=== PATIENT | male | born 1985 | race Caucasian/White ===

== ENCOUNTER 2016-11-26 03:21 | Emergency (ER) | payer MEDICAID, OTHER ==
[2016-11-26] MEDS ORDERED: 0.9% Sodium Chloride 1,000 ML IV ONE (03:26)
[2016-11-26 04:00] LABS: BASOPHILS % (AUTO) 0.1 % (0-3); EOSINOPHILS % (AUTO) 0.1 % (0-5); MONOCYTES % (AUTO) 6.9 % (4-12); Mean Corpuscular Hemoglobin 32.5 pg (27.0-35.0); Mean Corpuscular Volume 101.8 fL (81-100); NEUTROPHILS % (AUTO) 86.3 % (40-74); Platelet Count 267 bil/L (150-400)
[2016-11-26 04:26] LABS: INR 1.5 ratio
[2016-11-26] MEDS ORDERED: METO25TA6 PO (10:26)
[2016-11-26] MEDS ORDERED: OMEP20CA11 PO (10:28)
[2016-11-29] MEDS ORDERED: HYDR-4003 PO (14:39)
== END 2016-12-01 10:23 | disposition admitted as inpatient to this hospital (09) ==
LOC: EDBD 03:21 → SED 06:30
DX: R69 Illness, unspecified (principal)

== ENCOUNTER 2016-11-26 03:30 | Inpatient (IN) | payer MEDICAID, OTHER ==
[2016-11-26] VITALS (25 sets, daily range): BP systolic 3–152; BP diastolic 50–99; PULSE 73–132; RESP 13–26; O2SAT 91–100
[~2016-11-26] VITALS: Ht 180.3 cm; Wt 100.1 kg
--- NOTE | 2016-11-26 03:45 | ED.REPORT ---
HPI-General Illness Date of Service Nov 26, 2016 ED Provider: Dwain Rodriguez MD This is a 31 year old male transferred to the ED from [facility] with splenic laceration. Pt reports abdominal pain. Denies fever, chills, nausea or vomiting. Reports consumption of twenty alcoholic beverages today and lifting of a heavy object. He presented there pale hypotensive initially felt to be septic, in view of the negative history of trauma. CT revealed a splenic laceration with significant hemoperitoneum. Initial hemoglobin was normal but his decline rapidly. He has required ongoing fluids to sustain his blood pressure. Not transfused prior to transfer Nursing Notes Stated Complaint: SPLENIC LACERATION Chief Complaint: Male Abdominal Pain Nursing Notes Reviewed: Yes Allergies: Coded Allergies: No Known Allergies (Unverified , 11/26/16) General Time Seen by MD: 03:44 Chief Complaint Other Hx Obtained From: Patient Arrived By: Ambulance Sudden in Onset?: Yes Onset Occurred: Just prior to arrival Symptom Duration: Since onset Severity: Current: Moderate Pertinent Negative: Pt denies other symptoms Recent Healthcare: Recent doctor visit Similar Sx Previous: No Past Medical History Past Medical History Denies Past Surgical History Denies Social History Alcohol Use: >5 per day Ambulatory Status Independent Review of Systems Full Review of Systems Constitutional: Denies: Chills, Fever GI: Reports: Abdominal pain, Denies: Nausea, Vomiting Neurologic: Denies: Headache Complete sys rev & neg: except as marked. Physical Exam Vital Signs Vital Signs Date Time Temp Pulse Resp B/P Pulse Ox O2 Delivery O2 Flow Rate FiO2 11/26/16 04:10 124 24 92/54 100 Nasal Cannula 2 11/26/16 03:50 16 126/82 100 Room Air 11/26/16 03:44 36.7 100 19 126/82 100 Room Air - Initial VS: Reviewed Head / Eyes: Atraumatic, Normocephalic, PERRL ENT: Mucous membranes moist, Conjunctiva normal, No scleral icterus Neck: Supple, Non-tender, Full range of motion Respiratory: Breath sounds normal, Clear to auscultation, No respiratory distress Extremities: Vascular intact, Neuro intact, No swelling, No tenderness Neurologic: Alert, Oriented, Nonfocal Psychiatric: Mood/affect normal, Behavior normal, Normal thought content General/Constitutional: Awake, Alert Appearance / Presentation: Positive: Pale Cardiovascular: Regular rhythm, No murmurs, No rubs Heart Rate / Rhythm: Positive: Tachycardia Abdomen: BS normoactive Tenderness/Guarding/Rebound: Positive: Tender epigastric Skin: No rash Diaphoretic Interpretation & Diagnostics Lab Results Interpretation Result Diagram: 11/26/16 0603 ECG Interpretation ECG Interpretation: Sinus tachycardia at a rate of 107 Time: 04:03 Interpreted by: ED physician Re-Eval/Medical Decision Med Decision/Clinical Course 31-year-old alcoholic presents with spontaneous splenic rupture without significant trauma. He is hypotensive and requiring transfusion. He is transported to the operating room promptly. He is coagulopathic and these results were communicated to the operating room. Consultation : Referral / Consult Name: Michael Retana MD Consulted With: Surgeon Call Returned at: 03:19 Vet Assistant: Will see patient Counseled Regarding: Diagnosis, Lab results, Need for follow-up, Need for admission Discharge & Departure Primary Impression: Splenic laceration Encounter type: initial encounter Qualified Code: S36.039A - Unspecified laceration of spleen, initial encounter Additional Impressions: Hypovolemic shock Alcoholism Coagulopathy Severe anemia Hypocalcemia Disposition: ADMITTED TO HOSPITAL Discharge Condition All VS Reviewed: Yes Condition: Stable Crit Care Except Billable Proc Time Spent: 30-74 minutes Services Performed: Patient management by me, Time spent at bedside, Reviewing test results, Reviewing imaging, Discussing patient care, Documentation in record Scribe Attestation Portions of this note were transcribed by Jakub Iverson. I, Dr. Rodriguez personally performed the history, physical exam and medical decision-making; I reviewed and confirmed the accuracy of the information in the transcribed note. Signed by: chuyita Greenwood. 11/25/2016, 03:30. Dwain Rodriguez MD Nov 26, 2016 03:45 JAKUB IVERSON Nov 26, 2016 03:55
[2016-11-26] MEDS ORDERED: Lactated Ringer's 1,000 ML IV ONE (04:20)
--- NOTE | 2016-11-26 04:22 | HP ---
[address] [address] HISTORY AND PHYSICAL PATIENT: MARZENA DE LOS SANTOS : 1985 MR#: [id number] ADMIT: 11/26/2016 JOB ID: [id number] CHIEF COMPLAINT: Hemoperitoneum, ruptured spleen. HISTORY OF PRESENT ILLNESS: The patient is a 31-year-old male who I was contacted by the [facility] just now due to findings of hemoperitoneum and ruptured spleen on the CT scan. The patient was subsequently transferred from [facility] Emergency Department to our emergency department. The story is that he was just at home. There is no history of trauma. He just started to feel dizzy. Patient only takes blood pressure medication. The patient is a fairly heavy drinker. The patient was found to be hypotensive in the emergency department at [facility]. The emergency department doc had initially suspected sepsis, but subsequent imaging studies demonstrated the hemoperitoneum and ruptured spleen with active extravasation on CT. PAST MEDICAL HISTORY: Hypertension. MEDICATIONS: Metoprolol. ALLERGIES: None. SOCIAL HISTORY: Patient is with a son and a daughter. He lives in [place]. He works for an [employer] company. Patient admits to fairly heavy drinking of alcohol, about 12 beers a day. FAMILY HISTORY: Noncontributory to the current clinical situation. REVIEW OF SYSTEMS: Positive for just dizziness. No recent trauma or falls. PHYSICAL EXAMINATION: The patient is currently stable in the emergency department. His blood pressure is 126/82, pulse of 100, respirations 19, temperature 36.7. Head is normocephalic, atraumatic. There is no scleral icterus. Neck is supple. Heart is regular. Lungs are clear. Abdomen is obese, but soft. There is some tenderness in the epigastric region. There are no peritoneal signs. Extremities show no clubbing and no cyanosis. Neurologically, patient is awake and alert, and answers appropriately. We are currently getting laboratory studies, including PT, PTT, and type and cross. ASSESSMENT: This is a 31-year-old male with a spontaneous rupture of the spleen. There is no history of trauma or falls. We will take the patient to the operating room tonight for splenectomy. The risks and postoperative expectations were discussed with the patient, patient understands and wishes to proceed. The patient will need to be in the intensive care unit postop. He will need vaccines in the postoperative period as an outpatient. APRYL
[2016-11-26] MEDS ORDERED: 0.9% Sodium Chloride 1,000 ML IV ONE ×3 (04:30→16:40)
[2016-11-26] MEDS ORDERED: CeFAZolin Inj 2 GM in IV Premix 1 EACH IV ONE ×2 (04:55→13:00)
[2016-11-26] MEDS ORDERED: DEXTROSE 5% IV ONE (05:00)
[2016-11-26] MEDS ORDERED: PHYTONADIONE IV ONE (05:00)
[2016-11-26] MEDS ORDERED: Calcium Chloride 10% (Gm) 1 Gm/10 mL Inj IV ONE (05:00)
[2016-11-26] MEDS ORDERED: Heparin 5,000 Unit/mL Inj IRRIGATION ONE (05:48)
[2016-11-26 06:06] LABS: BASOPHILS % (AUTO) 0.2 % (0-3); EOSINOPHILS % (AUTO) 0 % (0-5); MONOCYTES % (AUTO) 10.1 % (4-12); Mean Corpuscular Hemoglobin 30.2 pg (27.0-35.0); Mean Corpuscular Volume 92.9 fL (81-100); NEUTROPHILS % (AUTO) 85.4 % (40-74); Platelet Count 202 bil/L (150-400)
--- NOTE | 2016-11-26 06:09 | PCM.HPANE ---
Patient Data Surgeon Admitting Provider:Michael Retana MD Attending Provider:Michael Retana MD Primary Care Physician:Yessy Other Provider:Kelsie Zimmer Anesthesia Reason for Visit Splenic Laceration Ht/WT & BMI Height (Feet): 5 Height (Inches): 11 Weight (Kilograms): 109.09 Body Mass Index Allergies Coded Allergies: No Known Allergies (Unverified , 11/26/16) Diabetes History Hx Diabetes?: No History Cardiovascular History: Positive for:: Hypertension Denies:: Congestive Heart Failure Respiratory History: Denies:: Tuberculosis Hx Surgeries?: No Hx Diabetes: No Hx Alcohol Use: YesAlcoholic Drinks Per Day: 20 beersHx Substance Use: No Stop/Bang Risk Assessment Category Category 1A: Patient has history of documented sleep apnea, and HAS NOT received any narcotic, sedative or anesthesia administration during this stay. Category 1B: Patient has history of documented sleep apnea, and HAS received any narcotic , sedative or anesthesia administration during this stay Category 2: Patient has SUSPECTED Obstructive Sleep Apnea, and HAS received any narcotic , sedative or anesthesia administration during this stay. Category 3: Patient has SUSPECTED Obstructive Sleep Apnea and HAS NOT received narcotic, sedative or anesthesia administration during this stay. Category 4: Outpatient in Procedural Areas with known sleep apnea or who screen positive for High Risk via the STOP/BANG questionnaire. Exam Exam Vital Signs Vital Signs Date Time Temp Pulse Resp B/P Pulse Ox O2 Delivery O2 Flow Rate FiO2 11/26/16 04:59 111 22 90/54 100 Nasal Cannula 11/26/16 04:25 110 22 111/99 99 Nasal Cannula 2 11/26/16 04:19 115 26 103/88 100 Nasal Cannula 2 11/26/16 04:15 108 22 79/50 100 Nasal Cannula 2 11/26/16 04:10 124 24 92/54 100 Nasal Cannula 2 11/26/16 03:50 16 126/82 100 Room Air 11/26/16 03:44 36.7 100 19 126/82 100 Room Air General Appearance: Alert, Oriented X3, Severe Distress HEENT/AIRWAY: MP 2, Neck Movement (Nunez, FROM), Mouth Opening (WNL), Other ( diaphoretic, conversant) Meds/Labs/Diagnostics Admission Meds Current Medications Sodium Chloride/ Electrolytes 1,000 ml @ 50 mls/hr Q20H ONCE IV Last administered on 11/26/16 05:20; Start 11/26/16 at 04:26; Stop 11/27/16 at 00:25 Sodium Chloride 1,000 ml @ 0 mls/hr Q0M ONCE IV Last administered on 04:10; Start 11/26/16 at 04:30; Stop 11/26/16 at 04:31; Status DC Cefazolin Sodium/ Dextrose 2 gm/ Premix 50 ml @ 100 mls/hr ONCE ONCE IV Last administered on 11/26/16 05:04; Start 11/26/16 at 04:55; Stop 11/26/16 at 05:24 ; Status DC Phytonadione/ Dextrose/Water (Vitamin K (Adult)/D5W) 51 ml @ 102 mls/hr ONCE ONCE IV Last administered on 11/26/16 05:52; Start 11/26/16 at 05:00; Stop at 05:29; Status DC Heparin Sodium (Porcine) (Heparin Inj) 30,000 unit STK-MED ONCE IRRIGATION Last administered on 11/26/16 05:48; Start 11/26/16 at 05:48; Stop 11/26/16 at 05:56; Status DC Labs Test 11/26/16 06:03 White Blood Count 13.0th/mm3 (3.8-10.1) Red Blood Count 2.68mil/mm3 (4.40-5.80) Hemoglobin 8.1g/dL (13.8-17.2) Hematocrit 24.9% (41.0-50.0) Mean Corpuscular Volume 92.9fL (81-100) Mean Corpuscular Hemoglobin 30.2pg (27.0-35.0) Mean Corpuscular Hemoglobin Concent 32.5% (32.0-37.0) Red Cell Distribution Width 17.2% (12.3-15.4) Platelet Count 202bil/L (150-400) Neutrophils (%) (Auto) 85.4% (40-74) Lymphocytes (%) (Auto) 3.5% (14-46) Monocytes (%) (Auto) 10.1% (4-12) Eosinophils (%) (Auto) 0% (0-5) Basophils (%) (Auto) 0.2% (0-3) Plan Impression Patient chart reviewed, patient interviewed and anesthestic plan with risks, benefits, and alternatives discussed, and informed consent obtained. ASA Physical Status: ASA4 Plus Emergency Anesthetic Support Modalities: [place] Scope, Arterial Line, Central Line Anesthetic Plan: GA Bene/Risks/Altern/Consents: Yes HP Complete Prior to Induction: Yes Other verbal H&P from Mazin to me. This document was not started before in the OR. Mendoza Booth MD Nov 26, 2016 06:09
[2016-11-26] MEDS ORDERED: Lactated Ringer's 1,000 ML IV SCH (06:14)
[2016-11-26] MEDS ORDERED: Lactated Ringer's 500 ML IV PRN (06:14)
[2016-11-26] MEDS ORDERED: HYDROmorphone 1 mg/mL Inj IVPUSH PRN ×2 (06:15→07:20)
[2016-11-26] MEDS ORDERED: Atropine 0.4 mg/mL Inj IVPUSH PRN (06:15)
[2016-11-26] MEDS ORDERED: Labetalol 5 mg/mL 4 mL Inj IV PRN (06:15)
[2016-11-26] MEDS ORDERED: Ondansetron 2 mg/mL 2 mL Inj IVPUSH PRN ×2 (06:15→07:20)
[2016-11-26] MEDS ORDERED: Dexamethasone 4 mg/mL Inj IVPUSH PRN (06:15)
[2016-11-26] MEDS ORDERED: Phenylephrine 10,000 mCg/mL Inj IVPUSH PRN (06:15)
[2016-11-26] MEDS ORDERED: EPHEDrine Sulfate 50 mg/mL Inj IM PRN (06:15)
[2016-11-26] MEDS ORDERED: hydrALAZINE 20 mg/mL Inj IVPUSH PRN (06:15)
[2016-11-26] MEDS ORDERED: hydrOXYzine Inj 25 MG/1 mL SDV IM PRN (06:15)
[2016-11-26] MEDS ORDERED: fentaNYL-PF 50 mCg/mL 2 mL Inj IVPUSH PRN (06:15)
[2016-11-26] MEDS ORDERED: EPHEDrine Sulfate 50 mg/mL Inj IVPUSH PRN (06:15)
[2016-11-26 06:47] LABS: INR 1.26 ratio
--- NOTE | 2016-11-26 07:36 | PCM.ANEP1 ---
Post Anesthesia Phase 1 PACU Phase 1 Assessment Vital Signs Vital Signs Date Time Temp Pulse Resp B/P Pulse Ox O2 Delivery O2 Flow Rate FiO2 11/26/16 04:59 111 22 90/54 100 Nasal Cannula 11/26/16 04:25 110 22 111/99 99 Nasal Cannula 2 11/26/16 04:19 115 26 103/88 100 Nasal Cannula 2 11/26/16 04:15 108 22 79/50 100 Nasal Cannula 2 11/26/16 04:10 124 24 92/54 100 Nasal Cannula 2 11/26/16 03:50 16 126/82 100 Room Air 11/26/16 03:44 36.7 100 19 126/82 100 Room Air Anesthetic Administered: GA Level of Alertness: Awake, talking ANDERSON's with Equal Strength: Yes Pain: No Nausea or Vomiting: No Oxygen Delivery: Room Air Lungs: Normal Air Movement Mendoza Booth MD Nov 26, 2016 07:36
--- NOTE | 2016-11-26 07:49 | OP ---
[address] [address] OPERATIVE REPORT PATIENT: MARZENA DE LOS SANTOS : 1985 MR#: [id number] ADMIT: 11/26/2016 JOB ID: [id number] DATE OF SURGERY: 11/26/2016 SURGEON: Michael Retana MD PROCESS PUMPER: Denisse Hammer PAGonzaloC ANESTHESIA: General. PREOPERATIVE DIAGNOSIS(ES): Ruptured spleen. POSTOPERATIVE DIAGNOSIS(ES): Ruptured spleen. PRINCIPAL PROCEDURE: 1. Exploratory laparotomy. 2. Splenectomy. 3. Right femoral triple-lumen catheter placement. INDICATION FOR PROCEDURE: The patient is a 31-year-old male who was transferred in from [facility] due to a CT scan finding of ruptured spleen with active extravasation. PRINCIPAL FINDING: Successful placement of a right femoral triple-lumen catheter, followed by laparotomy and splenectomy. The assistance from a surgical PA was critical in completion of the case. PROCEDURE COURSE: The patient was brought to the operating table and was provided with general anesthesia. The patient was given IV antibiotics and SCDs. He was given a Valdes catheter. A right femoral triple-lumen catheter was first placed percutaneously by me using sterile technique. The patient's abdomen was prepped and draped in the usual sterile fashion. We had blood products available and the patient was given 10 mg of vitamin K. A surgical time-out was performed. A midline incision was made using the scalpel. The subcutaneous tissue was entered and the peritoneum was entered without difficulty. Lots of blood emanated from the peritoneal space. The fascia was opened and packing of all quadrants was first accomplished. Once we had the packing performed, we placed the Bookwalter device to help with exposure of the left upper quadrant. Sequentially, all the packings were then removed and we were able to see the ruptured spleen. The peritoneal attachments around the spleen was detached using cautery and the Impact device. There was packing placed behind the spleen to help elevate it out of the abdominal cavity. The hilum was dissected out and the splenic vein was isolated and it was tied off using 0 silk sutures x2. Next, the splenic vein was then divided. The small splenic arteries were subsequently dissected out and divided also using the Impact device. Again, all the peritoneal attachments to the retroperitoneum, and also to the left upper quadrant were divided and then the specimen was passed off. A total of 2200 cc of blood was evacuated from the patient's abdominal cavity, and approximately 1500 cc were returned to him via Cell Saver. The patient also received 3 units of packed cells, 2 units of FFP, 1 unit of platelet, and approximately 2 L of saline. Next, irrigation of all four quadrants was carried out and suctioned off. Hemostasis was adequate. There was no active arterial bleeding from the left upper quadrant and from the operative site. An NG tube was then placed and the tip was palpated to be within the stomach. Next, a piece of Surgicel was then placed directly beneath the midline incision on top of the small bowel and omentum. Next, the fascia was then closed from both ends using 0 PDS suture, and the two sutures were then tied at the midline. The subcutaneous tissue was then irrigated and the skin was closed using absorbable sutures. Steri-Strips and sterile dressing were then placed over the wound. By the end of the procedure, needle counts and sponge counts were correct. I believe the patient will be extubated and be taken back to the intensive care unit.
[2016-11-26 08:15] LABS: Mean Corpuscular Hemoglobin 31.4 pg (27.0-35.0); Mean Corpuscular Volume 95.2 fL (81-100)
[2016-11-26 08:23] LABS: INR 1.2 ratio
[2016-11-26] MEDS ORDERED: CeFAZolin Inj 2 GM in IV Premix 1 EACH IV SCH (08:30)
[2016-11-26] MEDS ORDERED: fentaNYL-PF 50 mCg/mL 2 mL Inj ONE (08:36)
--- NOTE | 2016-11-26 09:04 | NUR ---
Pt arrived from PACU at approx 0830hrs Pt was awake and conversive on arrival, VS stable, with BP 120's sys, HR 80-90's. sats high 90's on room air. He was complaining of abdo pain 7/10 and this is now down to 2/10 after Dilaudid. Pt was complaining of discomfort and "gagging" related to the NG. Dr. Retana was notified and orders received to remove this and this was done. Pt appears much more comfortable at this time. Family are in the room, supportive and helpful. Dr. Miranda is with pt at this time and updating pt and family on plan of care.
--- NOTE | 2016-11-26 09:34 | DRSVH ---
PROCEDURE: X-RAY CHEST ONE VIEW ([id number]) INDICATIONS: pre op TECHNIQUE: One view of the chest was acquired. COMPARISON: [facility], CT, CT ABDOMEN PELVIS W CONTRAST, 11/26/2016, 2:22 AM. [facility], CR, XR CHEST 1V PORTABLE, 11/26/2016, 0:31 AM. FINDINGS: Surgical changes and devices: None. Lungs and pleura: No pleural effusions or pneumothorax. Lungs are clear. Mediastinum: Mediastinal contours appear normal. Heart size is normal. Bones and chest wall: No suspicious bony lesions. Overlying soft tissues appear unremarkable. IMPRESSION: No acute cardiopulmonary disease. Dictated by: Mick MCDOWELL Interpreted: Georgina Peterson MD on 11/26/2016 at 9:34 Transcribed by: CLAUDINE on 11/26/2016 at 9:34 Approved by: Georgina Peterson M.D. on 11/26/2016 at 13:37
--- NOTE | 2016-11-26 09:41 | PCM.ANEP2 ---
Post Anesthesia Evaluation ASA/CMS Post Anesthesia VS in Patient's Normal Range?: Yes Resp Stable; Airway Patent?: Yes CV Function & Hydration Stable: Yes Mental Status Recovered?: Yes Pain control Satisfactory?: Yes N/V Control Satisfactory?: Yes Mendoza Booth MD Nov 26, 2016 09:41
[2016-11-26] MEDS: Dextrose 5% Lactated Ringer's 1,000 ML IV SCH ×2 (10:21→22:51)
[2016-11-26] MEDS: HYDROmorphone PCA 0.2 mg/mL 30 mL Inj IV PRN ×2 (10:22→17:29)
[2016-11-26] MEDS ORDERED: METO25TA6 PO (10:26)
[2016-11-26] MEDS ORDERED: OMEP20CA11 PO (10:28)
[2016-11-26] MEDS ORDERED: MeTOProlol 1 mg/mL 5 mL Inj IVPUSH SCH (12:25)
--- NOTE | 2016-11-26 12:35 | PCM.HPMED ---
Subjective Date of Service Nov 26, 2016 Primary Provider: Admitting Physician: Michael Rteana MD Primary Care Physician: N[place]erg Attending Physician: Michael Retana MD Admit Status: From the Emergency Department, Admit to [facility] Team Chief Complaint: 31-year-old man presents with splenic rupture History of Present Illness: Patient was in his usual state of health. At 6 PM on the day of admission he felt weak and presyncopal and then experienced increasing abdomen pain. No bowel changes. No significant nausea or vomiting. He had no unusual activities during the day. 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 He had lifted a dresser at home. No motor vehicle accident or impact trauma. He was taken to the emergency department by Dr. Thomas Retana and underwent splenectomy, from which she is now postoperative with mild pain complaints. Patient is a heavy beer drinker, 18 per day. States he has had mildly abnormal liver blood tests in the past. Has never had imaging of his liver and never been told he has cirrhosis. No history of alcohol withdrawal or seizures. There is no history of hematologic or immunologic disorder. Review of Systems: Complete review of systems was performed and significant findings are noted in the history of present illness and PMH. Allergies Coded Allergies: No Known Allergies (Unverified , 11/26/16) Home Medications Metoprolol Omeprazole PMH # Hypertension # Alcohol abuse # Anxiety disorder # GERD Surgical History Pediatric ocular tear duct surgery Family History No liver disease. No immunologic disease No hematologic disease. Alcoholism and psychiatric disease. 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 Hx Alcohol Use: Yes Alcoholic Drinks Per Day: 18 beers Hx Substance Use: No (no) Living Arrangement: with Family (lives with , nonsmoker, no special diet, full ADLs.) Exam Vital Signs Vital Sign - Last Date Time Temp Pulse Resp B/P Pulse Ox O2 Delivery O2 Flow Rate FiO2 11/26/16 08:30 37.0 84 17 122/64 98 Room Air 11/26/16 07:40 10 Intake and Output 11/25/16 11/25/16 11/26/16 Cumulative From/Thru 15:00 23:00 07:00 11/26/16 03:44 - 11/26/16 05:54 Intake Total 5601 ml 5601 ml Output Total 2550 ml 2550 ml Balance 3051 ml 3051 ml Intake IV Total 2551 ml 2551 ml Autotransfusion 2750 ml 2750 ml Platelets 300 ml 300 ml Output Urine Total 450 ml 450 ml Estimated Blood Loss 2100 ml 2100 ml Exam General: Slightly obese healthy-appearing man in no acute distress HEENT: sclerae anicteric, oral mucosa moist Neck: no JVD, no thyromegaly Chest: clear to auscultation Cardiac: S1S2, no murmur Abdomen: Midline incision bandaged, BS reduced, mildly tender, unable to assess for hepatomegaly Extremities: No pitting edema, no rash or petechiae Neuro: A&O, cranial nerves symmetric, motor strength 5/5, coordination normal, no tremor or asterixis, reflexes diffusely diminished Lab and Diagnostics Labs Postop hemoglobin stable 11.7, 11.5 Result Diagram: 11/26/16 0801 Assessment & Plan 31-year-old man presents with acute abdominal pain # Splenic rupture. Acute hemoperitoneum. Possibly related to weightlifting. 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 Postop course uneventful with prompt extubation. 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 Hemoperitoneum and perioperative blood loss. Currently seems stable after surgery. - Recheck CBC in a.m. - Transfuse as needed # Hypertension, chronic. On beta monica. - Continue beta monica to avoid rebound; IV metoprolol today - We start by mouth metoprolol in a.m. # Anxiety disorder, chronic. Expect this may be exacerbated by current medical conditions. - When necessary low-dose diazepam # Alcohol overuse disorder. Patient counseled by Bernardino on need to reduce alcohol intake. No history of alcohol withdrawal - Observe clinically - We will order CIWA if there are more overt signs of withdrawal. # GERD - Resume oral PPI in a.m. DVT prophylaxis. No chemoprophylaxis at present due to postoperative state. Expect early mobilization in this low risk patient. Pain Evaluation: Adequate Pain Control VTE Prophylaxis: Other Resuscitation Status: CPR: Attempt Resuscitation Time spent 60 minutes Orlando Miranda MD Nov 26, 2016 10:29
--- NOTE | 2016-11-26 13:55 | NUR ---
Pt transferred to [facility] at approx 1415hrs Pt has been stable, downgraded to floor care status, transferred to [facility]. VS have continued to be stable and pt has been able to rest on and off. He is using TOP CLEANER for pain and this is helping. UOP is a little slow, but pt does have some edema from all the fluid shifts of last night.
--- NOTE | 2016-11-26 15:00 | NUR ---
Arrival on [facility] Pt transferred from CCU to [facility] at 1425 hrs. Alert and oriented X 3. Post-op splenectomy. VSS. PIV patent and asymptomatic. Abdominal midline dressing clean, dry, and intact. [employer]OUNT [employer] SALES Dilaudid at standard setting available for pt pain control. Valdes catheter draining dark pink urine. Spouse at bedside. All personal possessions with pt. Pt states pain is 2/10. Cooperative and talkative. Administered 0.5 mg IVP Lorazepam for pt anxiety. Care continues.
--- NOTE | 2016-11-26 16:20 | NUR ---
Elevated HR Pt on continuous pulse oximeter for CHURN DRILLER Dilaudid. Noticed that pt's HR was consistently over 100 bpm. Pt asymptomatic, although he did feel his abdominal pain was increasing. Paged hospitalist and told Dr Dario Miranda of these findings. Requested additional order for metroprolol. He ordered a 1 liter NS bolus and a blood draw for hemoglobin and hematocrit. Dr Miranda later entered orders for IVP Metoprolol. Other VS stable. All of this information given to NOC shift RN. Care continues.
[2016-11-26] MEDS: MeTOProlol 1 mg/mL 5 mL Inj IVPUSH SCH (20:02)
--- NOTE | 2016-11-26 22:05 | NUR ---
Elevated HR Spoke with the MD about HR ranging between 110-135 with IV Metoprolol given. MD ordered H&H and relates tachycardia to increase in pain. No other new orders given at this time.
[2016-11-27] VITALS (12 sets, daily range): BP systolic 123–152; BP diastolic 64–83; PULSE 100–121; RESP 1–22; O2SAT 92–98
[2016-11-27] MEDS: Dextrose 5% Lactated Ringer's 1,000 ML IV SCH ×3 (00:55→16:50)
[2016-11-27] MEDS: MeTOProlol 1 mg/mL 5 mL Inj IVPUSH SCH ×2 (00:56→05:01)
[2016-11-27] MEDS: HYDROmorphone PCA 0.2 mg/mL 30 mL Inj IV PRN ×2 (01:27→08:42)
--- NOTE | 2016-11-27 04:40 | NUR ---
Patient's pain minimally controlled with FIRE FIGHTERS DISPATCHER Dilaudid. A bolus of 0.3mg given, which made the patient sleepy. MD aware of the tachycardia and relates it to an increase in pain. No new orders for new or to increase pain meds at this time.The pt's O2 decreased to 86% on RA without resp distress. Denies shortness of breath and chest pain. Placed on 2L O2 via NC and O2 saturations increased to 96%. The pt appears to be sleeping at this time.
[2016-11-27] MEDS: Pantoprazole 20 mg ER24 Tablet PO SCH (05:43)
[2016-11-27 05:50] LABS: BASOPHILS % (AUTO) 0.1 % (0-3); EOSINOPHILS % (AUTO) 0.3 % (0-5); MONOCYTES % (AUTO) 12.1 % (4-12); Mean Corpuscular Hemoglobin 31.2 pg (27.0-35.0); Mean Corpuscular Volume 95.9 fL (81-100); NEUTROPHILS % (AUTO) 80.6 % (40-74); Platelet Count 190 bil/L (150-400)
--- NOTE | 2016-11-27 10:52 | PROG NOTE ---
[address] [address] PROGRESS NOTE PATIENT: MARZENA DE LOS SANTOS : 1985 MR#: [id number] ADMIT: 11/26/2016 JOB ID: [id number] DATE: 11/27/2016 SUBJECTIVE: Postop day one laparotomy with splenectomy. The patient is doing well, says his pain is adequately controlled with his current IV pain medications. He is passing gas, but belching more. Other than that, is not hungry at all. Urine output is brisk. He has been afebrile, with a pulse around 105-109, and mildly hypertensive at 150/72. OBJECTIVE: On examination, lungs are clear. His abdomen is soft. His incision is intact without bleeding. Valdes is in place. Extremities are without edema. LABORATORY DATA: His electrolytes are normal. His creatinine is 1.37, glucose is 129, magnesium was 1.5. Hematocrit is relatively stable at 28.3, his white count is 19, his platelet count is 190. INR is 1.0. IMPRESSION AND PLAN: Doing well, no signs of active bleeding. We will check his hematocrit daily. He will start his p.o. metoprolol. We will get his Valdes out and get him up moving about.
[2016-11-27] MEDS ORDERED: MeTOProlol 1 mg/mL 5 mL Inj IVPUSH PRN (12:30)
[2016-11-27] MEDS ORDERED: Morphine PCA 1 mg/mL 30 mL Inj IV ONE (13:20)
[2016-11-27] MEDS ORDERED: Morphine PCA 1 mg/mL 30 mL Inj - Standard IV PRN (14:00)
--- NOTE | 2016-11-27 14:00 | NUR ---
PAIN/ACTIVITY Patient stated that the Dilaudid CATH LAB RADIOLOGY TECHNICIAN is not effective for his pain control. He rated his pain between 6-7/10 over his incisional area. Morphine 1 mg IV administered. Per patient the Morphine helped with his pain. He rated his pain as 5/10. CATH LAB RADIOLOGY TECHNICIAN switched to Morphine per protocol. Will reassess effectivity. Patient has been on sips and chips. Denies nausea. No emesis noted. Weaned off O2. PO2-Mid 90's on room air. Patient was able to get OOB to the chair and sat there for a couple of hours. Unable to ambulate at this time due to complaints of dizziness. [facility] d/cd. No UO at this time. Will continue to monitor. MG level is 1.5. New orders for Mg rider received. Will continue to monitor.
[2016-11-27] MEDS ORDERED: Magnesium Sulf 4 Gm/100 mL D5W Premix IV ONE (14:25)
[2016-11-27] MEDS: HYDROcodone-APAP 5-325 mg Tablet PO PRN ×2 (18:11→22:01)
--- NOTE | 2016-11-27 19:12 | NUR ---
POST-OP PROGRESS IV noted to be leaking. IV d/cd. IV therapy to restart IV. Will restart HANDBAG DESIGNER when IV site is available and will re-assess Morphine HANDBAG DESIGNER effectivity. Hydrocodone 2 tabs PO administered. Tolerating sips/chips. Denies nausea. No emesis noted. Denies SOB. Patient was able to void post IFC removal. CIWA-2. Patient is complaining of anxiety. Nicotine patch and Ativan offered. Patient refused at this time. Endorsed care to Marija Hassan RN.
--- NOTE | 2016-11-27 21:33 | PCM.PNMED ---
Subjective Date of Service Nov 27, 2016 Subjective Patient has some postoperative pain. However he is beginning to feel better. No other specific complaints. Exam Vital Signs Vital Sign - Last Date Time Temp Pulse Resp B/P Pulse Ox O2 Delivery O2 Flow Rate FiO2 11/27/16 20:38 37.1 117 22 123/67 97 Room Air 11/27/16 08:02 2.00 97 Intake and Output 11/26/16 11/26/16 11/27/16 Cumulative From/Thru 15:00 23:00 07:00 11/26/16 03:44 - 11/27/16 06:39 Intake Total 100 ml 1372 ml 1764 ml 8837 ml Output Total 800 ml 3350 ml Balance 100 ml 1372 ml 964 ml 5487 ml Intake Oral 50 ml 100 ml 150 ml IV Total 100 ml 1322 ml 1664 ml 5637 ml Autotransfusion 2750 ml Platelets 300 ml Output Urine Total 800 ml 1250 ml Estimated Blood Loss 2100 ml # Bowel Movements 0 0 Exam General: Patient is in no distress. He is only having some postoperative pain. HEENT: Head is atraumatic normocephalic. Eyes: Pupils are equally round and reactive to light and accommodation. Extraocular muscles are intact. Sclera are white anicteric. Subconjunctival mucosa is pink. Ears and nose are unremarkable. Oropharynx: There is no mucosal lesions, there is no thrush, there is no pharyngitis. Neck: Is supple, there are no nodes, or masses or tenderness. Chest: Is clear to auscultation and percussion. There are no rales, rhonchi, wheezes or rubs. Heart: Rate, rhythm is regular. There is no murmur, rub or gallop. Abdomen: Bowel sounds are present. Abdomen is exhibits expected postop incisional tenderness, no organomegaly or masses were appreciated. Extremities: Are symmetrical and well perfused. There is no edema, there is no cellulitis, no rash. Upper extremities are covered in tattoos Neurologic: There are no focal neurological deficits. Cranial nerves II through XII are intact. There are no sensory or motor deficits. Psychiatric: Patients mood is calm and shows no sign of agitation. Genital: Deferred Rectal: Deferred Lab and Diagnostics Result Diagram: 11/27/16 0440 11/27/16 0440 X-Rays, CTs and MRIs PROCEDURE: X-RAY CHEST ONE VIEW ([id number]) INDICATIONS: pre op TECHNIQUE: One view of the chest was acquired. COMPARISON: [facility], CT, CT ABDOMEN PELVIS W CONTRAST, 2016, 2:22 AM. [facility], CR, XR CHEST 1V PORTABLE, 11/26/2016, 0 :31 AM. FINDINGS: Surgical changes and devices: None. Lungs and pleura: No pleural effusions or pneumothorax. Lungs are clear. Mediastinum: Mediastinal contours appear normal. Heart size is normal. Bones and chest wall: No suspicious bony lesions. Overlying soft tissues appear unremarkable. IMPRESSION: No acute cardiopulmonary disease. Dictated by: Mick Brown RREufemia Interpreted: Georgina Peterson MD on 11/26/2016 at 9:34 Transcribed by: CLAUDINE on 11/26/2016 at 9:34 Approved by: Georgina Peterson M.D. on 11/26/2016 at 13:37 Assessment & Plan 31-year-old man presents with acute abdominal pain # Splenic rupture. Acute hemoperitoneum. Possibly related to weightlifting and /or moving extremely heavy furniture. 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 Postop course uneventful with prompt extubation. - Rule out viral illness such as hepatitis and/or HIV. Will check serologies. - Pain management with hydromorphone DISTRICT REPRESENTATIVE - Encourage ambulation out of bed - Nothing by mouth until signs of bowel activity - Okay to transfer to postsurgical floor after initial observation in CCU - Possible alcoholic cirrhosis as patient is able to drink 18 beers in a day. Will consider abdominal ultrasound to assess hepatobiliary tract after clinically stable - Patient will need vaccinations for pneumococcus, Haemophilus influenza and Neisseria meningitides # Acute anemia. Hemoperitoneum and perioperative blood loss. Currently seems stable after surgery. - Recheck CBC in a.m. - Transfuse as needed # Hypertension, chronic. On beta monica. - Continue beta monica to avoid rebound; IV metoprolol today - We start by mouth metoprolol in a.m. # Anxiety disorder, chronic. Expect this may be exacerbated by current medical conditions. - When necessary low-dose diazepam # Alcohol overuse disorder. Patient counseled by Bernardino on need to reduce alcohol intake. No history of alcohol withdrawal - Observe clinically - We will order CIWA if there are more overt signs of withdrawal. -We will check PT/INR # GERD - Resume oral PPI in a.m. # Hypomagnesemia -We will give 4 g of magnesium sulfate IV 1 today. DVT prophylaxis. No chemoprophylaxis at present due to postoperative state. Expect early mobilization in this low risk patient. Disposition: We will advance diet as tolerated and ask physical therapy to see the patient. Pain Evaluation: Adequate Pain Control GI Prophylaxis: Proton Pump Inhibitor VTE Prophylaxis: Other VTE Mechanical Devices: Intermittant Pneumatic CD Resuscitation Status: CPR: Attempt Resuscitation Dwain Pizano MD Nov 27, 2016 21:33
[2016-11-28] MEDS: HYDROcodone-APAP 5-325 mg Tablet PO PRN ×5 (02:10→18:33)
--- NOTE | 2016-11-28 03:43 | NUR ---
Pain Pain well managed with PO meds prn, pt reports pain relief equal to ACCOUNT LIAISON and less side effects. Reported able to ambulate to BR without significant increase in pain. Hourly rounding ongoing.
[2016-11-28 05:11] VITALS: BP 156/70; PULSE 96; RESP 16; O2SAT 96
[2016-11-28 05:54] LABS: BASOPHILS % (AUTO) 0.2 % (0-3); EOSINOPHILS % (AUTO) 0.8 % (0-5); MONOCYTES % (AUTO) 13.9 % (4-12); Mean Corpuscular Hemoglobin 31.5 pg (27.0-35.0); Mean Corpuscular Volume 93.8 fL (81-100); NEUTROPHILS % (AUTO) 76.6 % (40-74); Platelet Count 256 bil/L (150-400)
[2016-11-28 05:59] LABS: INR 0.95 ratio
[2016-11-28 06:11] LABS: Magnesium 2.3 mg/dL (1.6-2.6)
[2016-11-28] MEDS: Pantoprazole 20 mg ER24 Tablet PO SCH (06:13)
[2016-11-28] MEDS: Dextrose 5% Lactated Ringer's 1,000 ML IV SCH ×2 (06:33→12:55)
--- NOTE | 2016-11-28 09:02 | PCM.PNSURG ---
Subjective Date of Service: Nov 28, 2016 Date of Service: Nov 28, 2016 Visit Information: Reason for Visit Splenic Laceration Surgery/Surgery Date splenectomy 11/26/16 Post-Op Day # 2 Date of Admission: Nov 26, 2016 at 04:10 Hospital Day #2 Subjective: Patient seen awake in bed. Appears comfortable. Pain is well-controlled. Prefers oral pain medication to HOT PATCHER. Denies nausea or vomiting, but continues to have frequent burping with no flatus. Feels bloated but no severe abdominal pain. Feels slightly hungry, but is currently nothing by mouth with sips and meds only. Has been able to ambulate to the bathroom, but has not walked in the hallway yet. Postop General: No Complaints Gastrointestinal: No N/V, Other (as above) Pain Management: PO (on [place]) Postop Activity: Ambulating in Room Only Objective Vital Sign- Last 8 Hours Date Time Temp Pulse Resp B/P Pulse Ox O2 Delivery O2 Flow Rate FiO2 11/28/16 05:11 37.1 96 16 156/70 96 Room Air Intake and Output- Last 8 Hour 11/28/16 Cumulative From/Thru 07:00 11/26/16 03:44 - 11/28/16 06:14 Intake Total 654 ml 65081 ml Output Total 325 ml 4275 ml Balance 329 ml 6373 ml Intake Oral 350 ml IV Total 654 ml 7248 ml Autotransfusion 2750 ml Platelets 300 ml Output Urine Total 325 ml 2175 ml Estimated Blood Loss 2100 ml # Bowel Movements 0 General: Alert, Oriented X3, Cooperative, No Acute Distress Lungs: Clear to Auscultation Heart: Regular Rate/Rhythm Abdomen: Soft, Appropriately tender, Non-distended, Other (decreased bowel tones) Extremities: Thigh&Calf Soft/Nontender Neuro: Normal Speech Catheters: None Result Diagram: 11/28/16 0440 11/28/16 0440 Lab & Micro Results: Creatinine improving. INR 0.95. Hepatitis and HIV panels pending. Assessment & Plan Impression Primary diagnoses: Acute hemoperitoneum from splenic rupture, postop day 1 status post exploratory laparotomy with splenectomy on 11/26/2016. Other diagnoses: Postsurgical anemia Chronic hypertension Chronic anxiety Alcohol overuse disorder GERD Problems: Plan Continue to watch H&H. Encourage ambulation in the hallway. Continue nothing by mouth status with sips and meds only until less burping and more flatus. Encourage IS use. Continue pain control with oral medication. Begin subcutaneous heparin per Dr. Retana. VTE Prophylaxis: Sub-Q Heparin (Unfractionated), Other Resuscitation Status: CPR: Attempt Resuscitation Denisse Hammer PA-C Nov 28, 2016 09:02
--- NOTE | 2016-11-28 10:06 | PATH ---
SURGICAL PATHOLOGY Attending Physician:Michael Retana M.D. CASE STATUS: Signed Out PATIENT NAME: MARZENA DE LOS SANTOS PID: [id number] : 1985 DATE COLLECTED:11/26/2016 22:47 SPECIMEN: Spleen CLINICAL HISTORY: SPLENIC LACERATION 1). SPLEEN FINAL DIAGNOSIS: 1.SPLEEN (296 GRAMS): SEVERE ACUTE LACERATION WITH ASSOCIATED SPLENIC HEMORRHAGE AND CONGESTION. ICD10 code S36.039A NOTE: As part of a routine quality compliance coordinator, Dr. Edis Chan has also reviewed this case and agrees with the diagnosis. GROSS DESCRIPTION: The specimen is received in formalin, labeled with the patient's name, sublabeled as spleen and consists of a partially lacerated spleen (296 g, 13.6 x 9.5 x 4.0 cm). Approximately 50% of the capsule is torn. The remaining capsule is smith purple smooth shiny and flat. The hilum is lacerated. The parenchyma is red-brown and diffusely hemorrhagic. No nodules, masses or lesions are identified. Section code: (A) hilar vessels, pharmaceutical sales representative; (B-D) spleen, pharmaceutical sales representative. 11/27/16 JM MICRO DESCRIPTION: See diagnosis. ICD-9 CODES: CPT CODES: 1: 82959 Electronically Signed Out Aleksandar Hernandez MD [facility] Pathology [facility] [address], [place] [address] Technical component performed at [facility], [address] [place] [address] Ave[address], [place], [address]
[2016-11-28 12:46] VITALS: BP 119/70; PULSE 90; RESP 16; O2SAT 98
--- NOTE | 2016-11-28 14:41 | NUR ---
NUTRITION ASSESSMENT: ASSESS: 31 YO male admitted for hemoperitoneum and ruptured spleen s/p splenectomy on 11/26. Pt has been NPO x 3 days and reports burping, but is not passing flatus yet so diet will likely not be advanced today. PMHx: HTN, ETOH abuse LABS: Reviewed. Glu 109, Ca 7.8, Alk Phos 21, Alb 2.7. MEDS: Reviewed. GI: No BM reported yet. SKIN: Surgical incision CURRENT WT: 100.7 kg. admit wt: 97.2 kg. IBW: 78.2 kg. DIET: NPO x 3 days. EST. NEEDS: 4234-6319 kcals (20-22 kcals/kg BW), 95-115 g protein (1.2-1.5 g/kg IBW) NUTRITION DIAGNOSIS: 1.) Inadequate oral intake related to decreased ability to consume sufficient energy as evidenced by current NPO x 3 day status. NUTRITION INTERVENTION: 1.) Will continue to await timely advancement of diet hopefully within the next 24-48 hours. MONITOR / EVAL: Diet advancement / tolerance, labs, nutritional status. Follow per high nutritional risk guidelines.
[2016-11-28] MEDS: Heparin 5,000 Unit/mL Inj SUBQ SCH (16:30)
--- NOTE | 2016-11-28 16:34 | NUR ---
Activity/Pain Pt encouraged to ambulate three times this shift. OOB independently in room frequently, however have only ambulated hallways x1. Pt states that he feels too dizzy still to leave his room. Encouraged increase activity in room at minimum. Pt has reported pain at a tolerable 4-5/10 pain throughout this shift. [place]2 given q4h Bed down and locked, call light w/in reach.
[2016-11-28 19:30] VITALS: BP 145/89; PULSE 84; RESP 17; O2SAT 97
--- NOTE | 2016-11-28 20:30 | PCM.PNMED ---
Subjective Date of Service Nov 28, 2016 Subjective Patient has no new complaints. However, he has still not passed any gas or flatus. He has been "belching". His pain is better controlled. Exam Vital Signs Vital Sign - Last Date Time Temp Pulse Resp B/P Pulse Ox O2 Delivery O2 Flow Rate FiO2 11/28/16 12:46 36.7 90 16 119/70 98 Room Air 11/27/16 08:02 2.00 97 Intake and Output 11/27/16 11/27/16 11/28/16 Cumulative From/Thru 15:00 23:00 07:00 11/26/16 03:44 - 11/28/16 06:14 Intake Total 1157 ml 654 ml 53243 ml Output Total 600 ml 325 ml 4275 ml Balance 557 ml 329 ml 6373 ml Intake Oral 200 ml 350 ml IV Total 957 ml 654 ml 7248 ml Autotransfusion 2750 ml Platelets 300 ml Output Urine Total 600 ml 325 ml 2175 ml Estimated Blood Loss 2100 ml # Bowel Movements 0 Exam General: Patient is in no distress. He is only having some postoperative pain. HEENT: Head is atraumatic normocephalic. Eyes: Pupils are equally round and reactive to light and accommodation. Extraocular muscles are intact. Sclera are white anicteric. Subconjunctival mucosa is pink. Ears and nose are unremarkable. Oropharynx: There is no mucosal lesions, there is no thrush, there is no pharyngitis. Neck: Is supple, there are no nodes, or masses or tenderness. Chest: Is clear to auscultation and percussion. There are no rales, rhonchi, wheezes or rubs. Heart: Rate, rhythm is regular. There is a grade 2/6 systolic ejection murmur heard best at left sternal bordert. There is no rub or gallop. Abdomen: Bowel sounds are present. Abdomen exhibits expected postop incisional tenderness. There is abdominal striae present. When patient was asked about these he could only recall that he had been heart failure at one time and had significant weight gain from water retention. There is no organomegaly or masses were appreciated. Extremities: Are symmetrical and well perfused. There is no edema, there is no cellulitis, no rash. Upper extremities are covered in tattoos Neurologic: There are no focal neurological deficits. Cranial nerves II through XII are intact. There are no sensory or motor deficits. Psychiatric: Patients mood is calm and shows no sign of agitation. Genital: Deferred Rectal: Deferred Lab and Diagnostics Result Diagram: 11/28/1643911/28/16439 X-Rays, CTs and MRIs PROCEDURE: X-RAY CHEST ONE VIEW ([id number]) INDICATIONS: pre op TECHNIQUE: One view of the chest was acquired. COMPARISON: [facility], CT, CT ABDOMEN PELVIS W CONTRAST, 2016, 2:22 AM. [facility], CR, XR CHEST 1V PORTABLE, 11/26/2016, 0 :31 AM. FINDINGS: Surgical changes and devices: None. Lungs and pleura: No pleural effusions or pneumothorax. Lungs are clear. Mediastinum: Mediastinal contours appear normal. Heart size is normal. Bones and chest wall: No suspicious bony lesions. Overlying soft tissues appear unremarkable. IMPRESSION: No acute cardiopulmonary disease. Dictated by: Mick Brown [facility] Interpreted: Georgina Peterson MD on 11/26/2016 at 9:34 Transcribed by: CLAUDINE on 11/26/2016 at 9:34 Approved by: Georgina Peterson M.D. on 11/26/2016 at 13:37 Assessment & Plan 31-year-old man presents with acute abdominal pain # Splenic rupture. Acute hemoperitoneum. Possibly related to weightlifting and /or moving extremely heavy furniture. 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 Postop course uneventful with prompt extubation. - Rule out viral illness such as hepatitis and/or HIV. Will check serologies. These are still pending - Pain management with hydromorphone ELECTRICAL TESTER - Encourage ambulation out of bed - Nothing by mouth until signs of bowel activity. Patient still has no flatus as of yet. - Okay to transfer to postsurgical floor after initial observation in CCU - Possible alcoholic cirrhosis as patient is able to drink 18 beers in a day. Will consider abdominal ultrasound to assess hepatobiliary tract after clinically stable - Patient will need vaccinations for Pneumococcus, Haemophilus influenza and Neisseria meningitides. -Patient also encouraged to avoid getting into situations which might lead to a dog bite # Acute anemia. Hemoperitoneum and perioperative blood loss. Currently seems stable after surgery. - Recheck CBC in a.m. - Transfuse as needed # Hypertension, chronic. On beta monica. - Continue beta monica to avoid rebound; IV metoprolol today - We start by mouth metoprolol in a.m. - Patient apparently has a history of severe hypertensive cardiomyopathy. Asthma ask him how he got the abdominal street he stated that he was "full of fluid from heart failure", and that he had never been obese. - Given above and a heart murmur will check echocardiogram. # Anxiety disorder, chronic. Expect this may be exacerbated by current medical conditions. - When necessary low-dose diazepam # Alcohol overuse disorder. Patient counseled by Bernardino on need to reduce alcohol intake. No history of alcohol withdrawal. - Observe clinically - We will order CIWA if there are more overt signs of withdrawal. Especially given the history of anxiety disorder. - We will check PT/INR # GERD - Resume oral PPI in a.m. # Hypomagnesemia - Patient received 4 g of magnesium sulfate IV 1 - We will continue to monitor and correct as needed as this may be a problem given his history of alcoholism DVT prophylaxis. Dr. Retana has authorized subcutaneous heparin DVT prophylaxis today. Disposition: We will advance diet as tolerated and ask physical therapy to see the patient. Dr. Castro will follow for the hospitalist service in a.m. Pain Evaluation: Adequate Pain Control GI Prophylaxis: Proton Pump Inhibitor VTE Prophylaxis: Sub-Q Heparin (Unfractionated), Other VTE Mechanical Devices: Intermittant Pneumatic CD Resuscitation Status: CPR: Attempt Resuscitation Dwain Pizano MD Nov 28, 2016 20:30
[2016-11-29] MEDS: Heparin 5,000 Unit/mL Inj SUBQ SCH ×2 (00:40→10:21)
--- NOTE | 2016-11-29 02:04 | NUR ---
Activity Patient A&OX3, and pleasant this evening. Patient has complained fo 3-4/10 pain this evening, but has not requested any medication at this time. Patient states that he will let nurse know when he is ready for more pain medication. Patient encouraged to ambulate hallway this evening, but patient pt states that he still feels dizzy when ambulating. IV is currently infusing D5 LR @ 50cc/hr. Midline abdominal incision appears well approximated with steri strips intact. Patient is currently sleeping and appears comfortable. Will continue to monitor.
[2016-11-29 03:08] LABS: Hepatitis A Antibody IgM Negative (Negative); Hepatitis B Core Antibody IgM Negative (Negative)
[2016-11-29 04:36] VITALS: BP 122/70; PULSE 90; RESP 16; O2SAT 98
[2016-11-29] MEDS: HYDROcodone-APAP 5-325 mg Tablet PO PRN ×3 (05:26→13:57)
[2016-11-29] MEDS: Pantoprazole 20 mg ER24 Tablet PO SCH (05:27)
[2016-11-29 06:38] LABS: BASOPHILS % (AUTO) 0.3 % (0-3); EOSINOPHILS % (AUTO) 2.7 % (0-5); MONOCYTES % (AUTO) 26.3 % (4-12); Mean Corpuscular Hemoglobin 31.1 pg (27.0-35.0); Mean Corpuscular Volume 95.3 fL (81-100); NEUTROPHILS % (AUTO) 51.5 % (40-74); Platelet Count 436 bil/L (150-400)
--- NOTE | 2016-11-29 08:36 | PCM.PNSURG ---
Subjective Date of Service: Nov 29, 2016 Date of Service: Nov 29, 2016 Visit Information: Reason for Visit Splenic Laceration Surgery/Surgery Date splenectomy 11/26/16 Post-Op Day # 3 Date of Admission: Nov 26, 2016 at 04:10 Subjective: Patient seen awake in bed. States the pain is much better today. It is well controlled on oral hydrocodone. He had difficulty walking in the hallway yesterday due to dizziness. He believes this is related to the hydrocodone. He was able to be up and about in the room however. He was feeling hungry last night but not yet this morning. The burping has stopped and he is now passing flatus. Denies nausea or vomiting. No difficulty voiding. Postop General: No Complaints Gastrointestinal: No N/V, Passing Flatus Pain Management: PO (hydrocodone) Postop Activity: Ambulating in Room Only Objective Vital Sign- Last 8 Hours Date Time Temp Pulse Resp B/P Pulse Ox O2 Delivery O2 Flow Rate FiO2 11/29/16 04:36 36.4 90 16 122/70 98 Room Air Intake and Output- Last 8 Hour 11/29/16 Cumulative From/Thru 07:00 11/26/16 03:44 - 11/29/16 05:16 Intake Total 1289 ml 33209 ml Output Total 2050 ml 7300 ml Balance -761 ml 4970 ml Intake Oral 750 ml 1200 ml IV Total 539 ml 8020 ml Autotransfusion 2750 ml Platelets 300 ml Output Urine Total 2050 ml 5200 ml Estimated Blood Loss 2100 ml # Bowel Movements 0 0 General: Alert, Oriented X3, Cooperative, No Acute Distress Lungs: Clear to Auscultation Heart: Regular Rate/Rhythm Abdomen: Soft, Appropriately tender (at left upper quadrant without rebound or guarding), Non-distended SURGICAL WOUND : Wound General Appearence: Steri Strips, Intact, Well Approximated, No Erythema, No Discharge Neuro: Normal Speech Catheters: None Result Diagram: 11/29/16 0555 11/29/16 0555 Lab & Micro Results: Lipase 158 Assessment & Plan Impression Primary diagnoses: Acute hemoperitoneum from splenic rupture, postop day 3 status post exploratory laparotomy with splenectomy on 11/26/2016. Other diagnoses: Postsurgical anemia Chronic hypertension Chronic anxiety Alcohol overuse disorder GERD Problems: Plan Begin clear fluid diet and advance as tolerated. Continue attempts at ambulation. Discussed with Dr. Neri. May be able to discharge home if doing well later today. 1400: Patient seen jointly with Dr. Neri. Sitting up in chair, continues to improve. Pain is well-controlled on oral analgesics. He is able to walk in the hallway without dizziness or lightheadedness. He is tolerating a soft diet with no nausea vomiting or abdominal pain. He requests to go home. He was given routine postop instructions including no lifting greater than 10 pounds for 4 weeks, and he was educated on the importance of obtaining appropriate vaccinations for encapsulated bacteria. He was advised to get these 2-4 weeks postop. He states he already has an appointment made with his 's primary care physician in [place] for December 17. In the meantime he was given instructions to watch for any flu or upper respiratory symptoms, and call our office immediately if these occur to obtain antibiotics. He will follow-up in the [facility] outpatient general surgery clinic in 2 weeks, sooner prn. Pain Management: Oral hydrocodone. VTE Prophylaxis: Sub-Q Heparin (Unfractionated), Other Resuscitation Status: CPR: Attempt Resuscitation Denisse Hammer PA-C Nov 29, 2016 08:36
--- NOTE | 2016-11-29 08:47 | PCM.PNMED ---
Subjective Date of Service Nov 29, 2016 Subjective no issues overnight, passing gas now, CLD start today - no nausea - will attempt walkign more today. Exam Vital Signs Vital Sign - Last Date Time Temp Pulse Resp B/P Pulse Ox O2 Delivery O2 Flow Rate FiO2 11/29/16 04:36 36.4 90 16 122/70 98 Room Air 11/27/16 08:02 2.00 97 Intake and Output 11/28/16 11/28/16 11/29/16 Cumulative From/Thru 15:00 23:00 07:00 11/26/16 03:44 - 11/29/16 05:16 Intake Total 333 ml 1289 ml 41438 ml Output Total 975 ml 2050 ml 7300 ml Balance -642 ml -761 ml 4970 ml Intake Oral 100 ml 750 ml 1200 ml IV Total 233 ml 539 ml 8020 ml Autotransfusion 2750 ml Platelets 300 ml Output Urine Total 975 ml 2050 ml 5200 ml Estimated Blood Loss 2100 ml # Bowel Movements 0 0 Exam General: Patient is in no distress. He is only having some postoperative pain. HEENT: Head is atraumatic normocephalic. Eyes: Pupils are equally round and reactive to light and accommodation. Extraocular muscles are intact. Sclera are white anicteric. Subconjunctival mucosa is pink. Ears and nose are unremarkable. Oropharynx: There is no mucosal lesions, there is no thrush, there is no pharyngitis. Neck: Is supple, there are no nodes, or masses or tenderness. Chest: Is clear to auscultation and percussion. There are no rales, rhonchi, wheezes or rubs. Heart: Rate, rhythm is regular. There is a grade 2/6 systolic ejection murmur heard best at left sternal bordert. There is no rub or gallop. Abdomen: Bowel sounds are present. Abdomen exhibits expected postop incisional tenderness. There is abdominal striae present. When patient was asked about these he could only recall that he had been heart failure at one time and had significant weight gain from water retention. There is no organomegaly or masses were appreciated. Extremities: Are symmetrical and well perfused. There is no edema, there is no cellulitis, no rash. Upper extremities are covered in tattoos Neurologic: There are no focal neurological deficits. Cranial nerves II through XII are intact. There are no sensory or motor deficits. Psychiatric: Patients mood is calm and shows no sign of agitation. IVs and Medications Medications Reviewed: Medications were reviewed in detail Lab and Diagnostics Result Diagram: 11/29/1655411/29/1655 X-Rays, CTs and MRIs PROCEDURE: X-RAY CHEST ONE VIEW ([id number]) INDICATIONS: pre op TECHNIQUE: One view of the chest was acquired. COMPARISON: [facility], CT, CT ABDOMEN PELVIS W CONTRAST, 2016, 2:22 AM. [facility], CR, XR CHEST 1V PORTABLE, 11/26/2016, 0 :31 AM. FINDINGS: Surgical changes and devices: None. Lungs and pleura: No pleural effusions or pneumothorax. Lungs are clear. Mediastinum: Mediastinal contours appear normal. Heart size is normal. Bones and chest wall: No suspicious bony lesions. Overlying soft tissues appear unremarkable. IMPRESSION: No acute cardiopulmonary disease. Dictated by: Mick Brown Eufemia Interpreted: Georgina Peterson MD on 11/26/2016 at 9:34 Transcribed by: CLAUDINE on 11/26/2016 at 9:34 Approved by: Georgina Peterson M.D. on 11/26/2016 at 13:37 Assessment & Plan 31-year-old man presents with acute abdominal pain # Splenic rupture. Acute hemoperitoneum. Possibly related to weightlifting and /or moving extremely heavy furniture. 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 Postop course uneventful with prompt extubation. - Rule out viral illness such as hepatitis and/or HIV. Will check serologies. 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 Will consider abdominal ultrasound to assess hepatobiliary tract after clinically stable - Patient will need vaccinations for Pneumococcus, Haemophilus influenza and Neisseria meningitides. -Patient also encouraged to avoid getting into situations which might lead to a dog bite # Acute anemia. Hemoperitoneum and perioperative blood loss. Currently seems stable after surgery. - Recheck CBC in a.m. - Transfuse as needed # Hypertension, chronic. On beta monica. - Continue beta monica to avoid rebound; IV metoprolol today - We start by mouth metoprolol in a.m. - Patient apparently has a history of severe hypertensive cardiomyopathy. Asthma ask him how he got the abdominal street he stated that he was "full of fluid from heart failure", and that he had never been obese. - Given above and a heart murmur will check echocardiogram. # Anxiety disorder, chronic. Expect this may be exacerbated by current medical conditions. - When necessary low-dose diazepam # Alcohol overuse disorder. Patient counseled by Bernardino on need to reduce alcohol intake. No history of alcohol withdrawal. - Observe clinically - We will order CIWA if there are more overt signs of withdrawal. Especially given the history of anxiety disorder. - We will check PT/INR # GERD - Resume oral PPI in a.m. # Hypomagnesemia - Patient received 4 g of magnesium sulfate IV 1 - We will continue to monitor and correct as needed as this may be a problem given his history of alcoholism DVT prophylaxis. Dr. Retana has authorized subcutaneous heparin DVT prophylaxis today. Disposition: We will advance diet as tolerated and ask physical therapy to see the patient. Dr. Castro will follow for the hospitalist service in a.m. Pain Evaluation: Adequate Pain Control GI Prophylaxis: Proton Pump Inhibitor VTE Prophylaxis: Sub-Q Heparin (Unfractionated), Other VTE Mechanical Devices: Intermittant Pneumatic CD Resuscitation Status: CPR: Attempt Resuscitation Time spent 35 minutes spent with chantelle and Jeremiah Lopez DO Nov 29, 2016 08:47
[2016-11-29] MEDS: Dextrose 5% Lactated Ringer's 1,000 ML IV SCH (09:20)
--- NOTE | 2016-11-29 11:35 | NUR ---
NUTRITION FOLLOW-UP: ASSESS: 31 YO male admitted for hemoperitoneum and ruptured spleen s/p splenectomy on 11/26. Pt's diet has been advanced to CL today. He reports that he is passing gas. He reports having an appetite. Pt is a SCOAP pt. PMHx: HTN, ETOH abuse LABS: Reviewed. Bun 3, Ca 8.1, Alk phos 20, alb 2.9, lipase 158 MEDS: Reviewed. GI: No BM reported yet. SKIN: Surgical incision CURRENT WT: 100.1 kg. BMI 30.8kg/m2 admit wt: 97.2 kg. IBW: 78.2 kg. DIET: NPO x 3 days. EST. NEEDS: 7014-2353 kcals (20-22 kcals/kg BW), 95-115 g protein (1.2-1.5 g/kg IBW) NUTRITION DIAGNOSIS: 1.) Inadequate oral intake related to decreased ability to consume sufficient energy as evidenced by current NPO x 3 day status.--IMPROVING NUTRITION INTERVENTION: 1.) Will add Impact on all trays once diet advanced to [place] MONITOR / EVAL: Diet advancement / tolerance, labs, wt, nutritional status. Follow per high nutritional risk guidelines.
[2016-11-29 14:20] VITALS: BP 132/80; PULSE 91; RESP 16; O2SAT 100
--- NOTE | 2016-11-29 14:38 | PCM.DISURG ---
Surgical Discharge Instruction Date of Service Nov 29, 2016 Dates of Hospitalization Date of Hospital Admission Nov 26, 2016 at 04:10 Providers Admitting Physician: Michael Retana MD Primary Care Physician: N[place]erg Attending Physician: Michael Retana MD Discharge Diagnosis Discharge Diagnosis Primary diagnoses: Acute hemoperitoneum from splenic rupture,status post exploratory laparotomy with splenectomy on 11/26/2016. Other diagnoses: Postsurgical anemia Chronic hypertension Chronic anxiety Alcohol overuse disorder GERD Post Operative diagnosis Ruptured spleen. Diet Discharge Diet: No restrictions (start with small quantities and eat slowly) Activity Discharge Activity-General: Balance rest and activity, No lifting >10 pounds for 4-6 weeks, No driving while taking narcotic Dressing and Incisional Care Dressing Care: Allow Steri Stripes to fall off Hygiene: May shower, DO NOT soak incision under water, NO bathtub, hot tub or whirlpool Additional Instructions Discharge Instructions Very important to obtain vaccinations in 2-4 weeks. Please see your primary care provider to get the vaccinations. Avoid getting into any situation which might lead to a dog bite. In the meantime for any flulike symptoms, cough, cold or upper respiratory infection symptoms, or other illness please call our office immediately to obtain antibiotics. [phone]. Follow Up Plan Follow Up Plan In 2 weeks at the [facility] outpatient general surgery clinic. See your primary care provider 2-4 weeks post operatively to obtain vaccinations. Mid-level Provider (F9): Anuj Simental PA-C Follow-up appointment: Weeks (2) Call your provider for: Fever, Chills, Shortness of breath, Increasing abdominal pain, Nausea, Vomiting, Wound redness, Increasing wound pain, Discharge @ incision, pus discharge, Other (flulike symptoms, cough, or cold or respiratory illness) Denisse Hammer PA-C Nov 29, 2016 14:38
[2016-11-29] MEDS ORDERED: HYDR-4003 PO (14:39)
--- NOTE | 2016-11-29 15:01 | PCM.DC.SUR ---
Discharge Summary Date of Service: Nov 29, 2016 Date of Hospital Admission: Nov 26, 2016 at 04:10 Date of Operation(s): 11/26/2016 Date of Discharge: 11/29/2016 Diagnosis at Time of Discharge Primary diagnoses: Acute hemoperitoneum from splenic rupture, postop day 3 status post exploratory laparotomy with splenectomy on 11/26/2016. Other diagnoses: Postsurgical anemia Chronic hypertension Chronic anxiety Alcohol overuse disorder GERD Problems: Operation 1. Exploratory laparotomy. 2. Splenectomy. 3. Right femoral triple-lumen catheter placement. Brief History and Physical: The patient is a 31-year-old male who was transferred to [facility] from [facility] on 11/26/2016 due to findings of hemoperitoneum and ruptured spleen on the CT scan. The story is that he was just at home. There is no history of trauma. He just started to feel dizzy. Patient only takes blood pressure medication. The patient is a fairly heavy drinker. The patient was found to be hypotensive in the emergency department at [facility]. The emergency department doc had initially suspected sepsis, but subsequent imaging studies demonstrated the hemoperitoneum and ruptured spleen with active extravasation on CT. Patient is a heavy beer drinker, 18 per day. States he has had mildly abnormal liver blood tests in the past. Has never had imaging of his liver and never been told he has cirrhosis. No history of alcohol withdrawal or seizures. There is no history of hematologic or immunologic disorder. Consultants: Hospitalist for medical management. Hospital Course: The patient presented to [facility] ED and found to have splenic laceration. There is no history of trauma. He had lifted a heavy object earlier in the day. He was pale and hypotensive initially. CT scan revealed a splenic laceration with significant hemoperitoneum. He was transferred to [facility] ED and seen urgently by Dr. Michael Retana. He was taken to the operating room immediately where he underwent exploratory laparotomy and splenectomy. He tolerated the procedure well and there were no complications. A total of 2200 mL of blood was evacuated from the patient's abdominal cavity and approximately 1500 mL were returned to him via cell saver. The patient also received 3 units of packed red blood cells, 2 units of FFP, 1 unit of platelets, and approximately 2 L of saline. Postoperatively he was extubated and he was taken to the ICU then later that day transferred to medical floor. On his first postsurgical day the patient was doing well with his pain controlled. He was passing flatus and belching. No hunger. Urine output was brisk. He was afebrile. He remained hemodynamically stable. On his second postsurgical day the patient continued to do well. His pain was well-controlled on oral medications. He had no nausea or vomiting but he was not passing gas. Activity was encouraged. He remained afebrile & hemodynamically stable. On his third postsurgical day he remained afebrile and hemodynamically stable. Pain was well controlled on oral analgesics and he was able to ambulate comfortably. Clear liquid diet was started in the morning then advanced as the day progressed. He had no nausea vomiting or abdominal pain with oral intake. He was passing gas. He was discharged home in the afternoon. Pathology: FINAL DIAGNOSIS: 1.SPLEEN (296 GRAMS): SEVERE ACUTE LACERATION WITH ASSOCIATED SPLENIC HEMORRHAGE AND CONGESTION. Disposition: The patient was discharged home with pain well-controlled on oral analgesics. He was able to tolerate oral intake with no nausea or vomiting or increasing abdominal pain. He was afebrile and hemodynamically stable. He was given instructions to follow up with his primary care provider to receive postsplenectomy vaccinations in 2-4 weeks. He will notify our office in the meantime of any flulike symptoms, cough, cold, respiratory illness or other symptoms of illness to obtain antibiotics. -Hepatitis and HIV serologies are pending. - Patient will need vaccinations for Pneumococcus, Haemophilus influenza and Neisseria meningitides. -Patient also encouraged to avoid getting into situations which might lead to a dog bite Follow-up Plan: Follow-up in 2 weeks at the [facility] outpatient general surgery clinic, sooner prn. Follow-up with primary care provider in 2-4 weeks for post splenectomy vaccinations. Hydrocodone-Acetaminophen 5-325 mg (Hydrocodone-Acetaminophen 5-325 mg) 1 Each Tablet 1-2 TABLET PO Q4H PRN PRN For Moderate Pain Metoprolol Tartrate (Metoprolol Tartrate) 25 Mg Tablet 25 MG PO DAILY (Reported ) Omeprazole (Omeprazole) 20 Mg Capsule. 20 MG PO DAILY (Reported) Denisse Hammer PA-C Nov 29, 2016 15:01
--- NOTE | 2016-11-29 15:23 | NUR ---
Social Work: Brief Note Data And Assessment: EMR. Patient was discussed in morning rounds and currently the patient is not medically ready for discharge. Patient diet has been advanced and he is expected to be here approximately one more day. Patient is a 31 y/o male that admitted for splenic laceration. Patient's does not have a PCP on file. Patient's insurance is [employer]. Patient does not have a DPOA. [facility] [phone]. Per patient's H&P he lives at home. It is likely that the patient will discharge home with no needs. SW will continue to follow. Plan: It is likely that the patient will discharge home with no needs. Patient will discharge via POV. SW will continue to follow. Mare Sky LMSW, MISHA
--- NOTE | 2016-11-29 15:46 | NUR ---
Discharge Pt dc'd home at 1547. IV d/c'd intact. Reviewed d/c instructions w/ patient and his sig other. Answered all questions. Pt left w/ strong steady gait, hard copy of rx and all belongings. Denied offer of w/c to his SO's POV
== END 2016-11-29 15:46 | disposition home or self-care (01) | DRG 799 ==
LOC: EDUNIT# 03:30 → EDBD 03:30 → SED 03:30 → PCC 04:10 → CCU 05:34 → PCC 12:20 → OSC 13:31
PROVIDERS: ADMIT Surgery; ATTEND Surgery
PROC: 30233K1 Transfusion of Nonautologous Frozen Plasma into Peripheral Vein, Percutaneous Approach (ICD-10-PCS; 2016-11-26)
PROC: 30233N1 Transfusion of Nonautologous Red Blood Cells into Peripheral Vein, Percutaneous Approach (ICD-10-PCS; 2016-11-26)
PROC: 30233R1 Transfusion of Nonautologous Platelets into Peripheral Vein, Percutaneous Approach (ICD-10-PCS; 2016-11-26)
PROC: 30233N0 Transfusion of Autologous Red Blood Cells into Peripheral Vein, Percutaneous Approach (ICD-10-PCS; 2016-11-26)
PROC: 07TP0ZZ Resection of Spleen, Open Approach (ICD-10-PCS; principal; 2016-11-26 04:30)
DX: D73.5 Infarction of spleen (principal); R57.1 Hypovolemic shock; K66.1 Hemoperitoneum; D62 Acute posthemorrhagic anemia; E83.51 Hypocalcemia; I10 Essential (primary) hypertension; F41.9 Anxiety disorder, unspecified; F10.10 Alcohol abuse, uncomplicated; K21.9 Gastro-esophageal reflux disease without esophagitis; E83.42 Hypomagnesemia